=== PATIENT | female | born 1945 | race Caucasian/White ===

== ENCOUNTER 2020-07-16 10:55 | Outpatient (CLI) | payer MEDICARE, SELFPAY ==
--- NOTE | 2020-07-16 11:14 | ECG_ITS ---
Measurements Intervals [place] Rate: 53 P: 40 IN: 154 QRS: -3 QRSD: 88 T: 37 QT: 383 QTc: 360 Interpretive Statements SINUS BRADYCARDIA DELAYED PRECORDIAL R/S TRANSITION BASELINE ARTIFACT- I, III, AVR, AVL, AVF, V1-V6 BORDERLINE ECG Electronically Signed On 07-16-2020 11:48:28 BIOMETRIC FINGERPRINTING TECHNICIAN by Samir Dela Cruz D.O.
== END 2020-07-16 10:56 | disposition home or self-care (01) ==
PROVIDERS: PCP Family Medicine; Visit Provider Nurse Practitioner Family
DX: R00.0 Tachycardia, unspecified (principal); R94.31 Abnormal electrocardiogram [ECG] [EKG]
CPT/HCPCS: 93005

== ENCOUNTER 2020-07-18 22:00 | Emergency (ER) | payer MEDICARE, SELFPAY ==
[2020-07-18] VITALS (11 sets, daily range): BP systolic 141–173; BP diastolic 69–78; PULSE 59–66; RESP 14–21; TEMP 35.8; O2SAT 97–100
--- NOTE | ~2020-07-18 | XR_ITS ---
EXAMINATION: XR chest 1V portable 07/18/2020 22:28 INDICATION: Medial chest pain PROCEDURE: AP portable chest COMPARISON: 04/24/2009 FINDINGS: The lungs are clear. The lungs are hyperinflated which is consistent with, but not diagnost ic of chronic obstructive pulmonary disease. The cardiomediastinal silhouette is within normal limits . There are no pleural effusions. There is no pneumothorax suspected. IMPRESSION: 1: NO ACUTE CARDIOPULMONARY DISEASE. Reviewed, dictated and finalized at location A. [facility]
--- NOTE | 2020-07-18 22:08 | ECG_ITS ---
Measurements Intervals [place] Rate: 61 P: 73 NV: 155 QRS: -12 QRSD: 90 T: 32 QT: 373 QTc: 377 Interpretive Statements SINUS RHYTHM DELAYED PRECORDIAL R/S TRANSITION BASELINE WANDER- I, II, AVR, AVL, AVF BORDERLINE ECG Electronically Signed On 07-19-2020 7:58:52 YARD COUPLER by Samir Dela Cruz D.O.
--- NOTE | 2020-07-18 22:12 | ED.CHESTPAIN ---
HPI - Chest Pain General Chief Complaint: Chest Pain Stated Complaint: Chest tightness Time Seen by Provider: 07/18/20 22:12 Source: patient Mode of arrival: ambulatory Limitations: no limitations History of Present Illness HPI narrative: Patient is a 75-year-old female with a history of hyperlipidemia and hypertension who presents for evaluation of chest pain. Patient states that she was doing a puzzle at home this evening when she suddenly experienced central chest pain that lasted for 3 to 5 minutes before resolving on its own. No associated nausea, vomiting, shortness of breath, neck pain, shoulder pain, jaw pain or arm pain. No concurrent palpitations. She denies any current chest pain. Patient states she feels well. Patiently recently saw her primary care physician has these episodes of chest pain have been occurring over the past week and a half. She denies any history of stress test. She does not smoke. She does have a history of hyperlipidemia and she recently discontinued her statin even though she had been on this over the past 4 months because she was concerned it may be causing her pain. Patient does report a history of anxiety she states she has been very stressed recently and was wondering if that could also be causing some of her symptoms. Related Data Home Medications Medication Instructions Recorded Confirmed Lactobacillus acidophilus 100 mg PO DAILY 07/18/20 [Acidophilus] aspirin 81 mg PO DAILY 07/18/20 bvojiefssuqh-sac-sruo-FA-vit K tablet PO 07/18/20 [Adults Multivitamin] omega-3 fatty acids [Fish Oil] 1,000 mg PO DAILY 07/18/20 Allergies Allergy/AdvReac Type Severity Reaction Status Date / Time zinc Allergy Mild Unknown Verified 07/18/20 22:05 esomeprazole Allergy Unknown Unknown Verified 07/18/20 22:05 fluoxetine Allergy Unknown Unknown Verified 07/18/20 22:05 omeprazole Allergy Unknown Unknown Verified 07/18/20 22:05 pollen extracts Allergy Unknown Unknown Verified 07/18/20 22:05 Review of Systems Review of Systems: Narrative: CONSTITUTIONAL: Denies fever, chills, or sweats. EYES: Denies visual changes, redness, or discharge. ENT: Denies rhinorrhea, congestion, sore throat, or otalgia. CARDIOVASCULAR: Denies current chest pain, palpitations, or edema. RESPIRATORY: Denies cough or dyspnea. GASTROINTESTINAL: Denies abdominal pain, nausea, vomiting, or diarrhea. GENITOURINARY: Denies dysuria or hematuria. SKIN: Denies rash or itching. MUSCULOSKELETAL: Denies back pain, joint pain, or myalgia. NEUROLOGIC: Denies headache, numbness, or weakness. PSYCHIATRIC: Reports anxiety [facility] Past Medical History Medical History (Updated 07/19/20 @ 01:59 by Sonia Coulter MD) Anxiety Essential (primary) hypertension Gastroesophageal reflux disease without esophagitis Hyponatremia Mixed hyperlipidemia Racing heart beat Skin lesion of cheek Skin lesion of face Vitamin D deficiency Vitamin D deficiency, unspecified Family History Family History Mother Family history of diabetes mellitus in first degree relative Grandparent Diabetes mellitus Social History Social History Smoking status: Never smoker Alcohol intake: never Gender identity (if verbalized by the patient): Female Sexual Orientation (if Verbalized by the Patient): Straight or Heterosexual Exam Narrative: Exam Narrative: GENERAL: Awake, alert, conversant HEAD: Normocephalic, atraumatic. EYES: PERRLA and EOMI. ENT: Nares clear, no rhinorrhea or epistaxis. Mucous membranes moist. NECK: Supple. CHEST: No respiratory distress, breathing even and non labored, no chest wall tenderness HEART: Regular rate, sinus rhythm, no murmur ABDOMEN:Non distended, non tender EXTREMITIES: Normal range of motion. No edema. No calf tenderness bilaterally. SKIN: Warm, dry, no rash. NEURO:No focal deficits. Alert and oriented
[2020-07-18] MEDS: ASPIRIN 81 MG CHEWABLE TABLET 324 MG PO (22:34)
[2020-07-18 22:42] LABS: Basophils Absolute Auto 0.1 K/mm3 (0.0-0.1); Basophils Percent Auto 0.7 % (0.2-1.2); Eosinophils Absolute Auto 0.2 K/mm3 (0-0.3); Eosinophils Percent Auto 1.8 % (0-4.4); Hematocrit 38.9 % (37.0-47.0); Hemoglobin 13.3 g/dL (12.0-15.0); Immature Granulocyte Absolute 0.03 K/mm3 (0.00-0.031); Immature Granulocyte Percent A 0.3 % (0-0.5); Lymphocytes Absolute Auto 2.39 K/mm3 (0.9-3.2); Lymphocytes Percent Auto 26.3 % (18.3-44.2); Mean Corpuscular HGB Conc 34.2 g/dl (32-36); Mean Corpuscular Hemoglobin 31.2 pg (26-34); Mean Corpuscular Volume 91.3 fl (80-100); Mean Platelet Volume 9.3 fl (7.4-10.4); Monocytes Absolute Auto 0.9 K/mm3 (0.1-0.6); Monocytes Percent Auto 9.5 % (2.6-8.5); Neutrophils Absolute Auto 5.6 K/mm3 (1.3-6.7); Neutrophils Percent Auto 61.4 % (45.5-73.1); Platelet Count Result 248 k/mm3 (150-375); Red Blood Count 4.26 M/mm3 (4.2-5.4); White Blood Count 9.1 K/mm3 (4.5-10.0)
[2020-07-18 22:52] LABS: INR 0.9; Prothrombin Time 12.8 Seconds (11.1-14.7)
[2020-07-18 22:53] LABS: Partial Thromboplastin Time 27.5 SECONDS (22.3-36.8)
[2020-07-18 22:56] LABS: Anion Gap 11 mmol/L (8-16); Blood Urea Nitrogen 19 mg/dL (7-17); Calcium 9.2 mg/dL (8.4-10.2); Carbon Dioxide 26 mmol/L (22-30); Chloride 94 mmol/L (98-107); Estimated CRCL calculation 35 ml/min; Estimated Glomerular Filt Rate 54; Glucose 130 mg/dL (65-105); Potassium 4.2 mmol/L (3.4-5.0); Sodium 131 mmol/L (137-145)
[2020-07-18 23:08] LABS: Troponin I < 0.012 ng/mL (0.000-0.034)
[2020-07-19 00:09] VITALS: PULSE 57; RESP 15; O2SAT 98
[2020-07-19 00:19] VITALS: PULSE 60; RESP 47; O2SAT 99
[2020-07-19 00:30] VITALS: BP 162/72; PULSE 62; RESP 12; O2SAT 97
[2020-07-19 00:31] VITALS: PULSE 60; RESP 17; O2SAT 98
[2020-07-19 01:30] VITALS: BP 148/64; PULSE 59; RESP 13; O2SAT 99
[2020-07-19 01:39] LABS: Troponin I < 0.012 ng/mL (0.000-0.034)
[2020-07-19 02:00] VITALS: BP 143/63; PULSE 62; RESP 10; O2SAT 98
== END 2020-07-19 02:20 | disposition home or self-care (01) ==
PROVIDERS: Emergency Provider Emergency Medicine; PCP Family Medicine
DX: R07.89 Other chest pain (principal); E78.5 Hyperlipidemia, unspecified; I10 Essential (primary) hypertension; K21.9 Gastro-esophageal reflux disease without esophagitis; E55.9 Vitamin D deficiency, unspecified; Z79.82 Long term (current) use of aspirin; R94.31 Abnormal electrocardiogram [ECG] [EKG]
CPT/HCPCS: 36415; 71045; 80048; 84484; 85025; 85610; 85730; 93005; 99284; A9270

== ENCOUNTER 2023-05-30 10:04 | Emergency (ER) | payer MEDICARE, SELFPAY ==
--- NOTE | 2023-05-30 10:06 | ED.URI ---
HPI - URI/Sore Throat General Chief Complaint: Upper Respiratory Infection Stated Complaint: sore throat,irritation left cheek Time Seen by Provider: 05/30/23 10:05 Source: patient Mode of arrival: ambulatory Limitations: no limitations History of Present Illness HPI Narrative: Ariella is a 77-year-old female patient presenting to the clinic today with complaints of sore throat and redness and swelling around the left eye. She reports she just got back from [place] 2 weeks ago. At the time she was in [place] she developed redness and swelling around the left eye with pain and tenderness. She was seen in the urgent care there and prescribed Keflex and bacitracin cream. She reports that she finished the medication however the redness and swelling is coming back and is gradually getting worse day by day. Also reporting left-sided sore throat today that started over the last day or 2. No known fever or chills. Denies any visual changes MD elicited complaint: sore throat and other (Redness and swelling around the left eye) Related Data Home Medications Medication Instructions Recorded Confirmed Lactobacillus acidophilus 100 mg PO DAILY 07/18/20 09/20/21 (Acidophilus capsule) aspirin 81 mg tablet 81 mg PO DAILY 07/18/20 09/20/21 multivit with minerals-iron 18 tablet PO 07/18/20 09/20/21 mg-folic ac 400 mcg-vit K 25 mcg tablet (Adults Multivitamin) omega-3 fatty acids 1,000 mg PO DAILY 07/18/20 09/20/21 atorvastatin 20 mg tablet 20 mg PO .every other day 09/20/21 09/20/21 metoprolol tartrate 50 mg tablet 25 mg PO Q12H 09/20/21 09/20/21 Allergies Allergy/AdvReac Type Severity Reaction Status Date / Time zinc Allergy Mild Unknown Verified 05/30/23 10:10 esomeprazole Allergy Unknown Unknown Verified 05/30/23 10:10 fluoxetine Allergy Unknown Unknown Verified 05/30/23 10:10 omeprazole Allergy Unknown Unknown Verified 05/30/23 10:10 pollen extracts Allergy Unknown Unknown Verified 05/30/23 10:10 Review of Systems Review of Systems: Pertinent positives per HPI. Patient denies any fever, chills, rash, headache, visual changes, dizziness, cough, shortness of breath, chest pain, palpitations, nausea, vomiting, diarrhea, constipation, abdominal pain, or any urinary issues. [facility] Past Medical History Medical History Anxiety Essential (primary) hypertension Gastroesophageal reflux disease without esophagitis Hyponatremia Mixed hyperlipidemia Racing heart beat Skin lesion of cheek Skin lesion of face Vitamin D deficiency Vitamin D deficiency, unspecified Family History Family History Mother Family history of diabetes mellitus in first degree relative Grandparent Diabetes mellitus Social History Social History Smoking status: Never smoker Alcohol intake: never Gender identity (if verbalized by the patient): Female Sexual Orientation (if Verbalized by the Patient): Straight or Heterosexual Comments At the time of my signature, I reviewed and agree with the nursing past medical, surgical, social, and family history. There is no relevant family history pertinent to the patient complaint. Exam Narrative: General: Well-developed, well nourished, in no apparent distress Head: Normocephalic, atraumatic Eyes: Pupils equally round and reactive to light bilaterally, EOM intact, sclera and conjunctive clear, no discharge, redness and swelling around the left eye/cheek-tender to palpation with mild erythema without fluctuance or induration Ears: TMs intact and clear, ear canals clear, no drainage, grossly hearing normal. Nose: Nares patent, no discharge, no inflammation, no sinus tenderness. Mouth: Oral pharynx red without lesions or masses, good dentition, MMM. Postnasal drip Neck: Supple, trachea midline, no enlargement of anterior or
[2023-05-30 10:20] VITALS: BP 149/65; PULSE 79; RESP 16; TEMP 37.3; O2SAT 98
== END 2023-05-30 10:35 | disposition home or self-care (01) ==
PROVIDERS: Emergency Provider Nurse Practitioner Family; PCP Family Medicine
DX: J02.9 Acute pharyngitis, unspecified (principal); L03.213 Periorbital cellulitis; I10 Essential (primary) hypertension; E78.2 Mixed hyperlipidemia
CPT/HCPCS: 99213; G0463

== ENCOUNTER 2023-07-07 07:25 | Outpatient (CLI) | payer MEDICARE, SELFPAY ==
--- NOTE | ~2023-07-07 | CT_ITS ---
EXAMINATION: CT facial bones w con DATE: 07/07/2023 08:03 INDICATION: Cellulitis of face. TECHNIQUE: Computed tomography (CT) of the facial bones and maxillofacial region was performed with 7 5 mL Omnipaque 350 intravenous contrast. Automated exposure control and iterative reconstruction tech [employer] were employed. The dose-length product was 262.38 mGy-cm. COMPARISON: None. FINDINGS: There is mild leftward deviation of the nasal septum. There is mild mucosal thickening in t he ethmoid sinuses. There is a jewish of tooth 14. There are periapical lucencies around tooth 1 4 with sclerotic margin with communication with the maxillary sinus. There is severe cervical spondyl osis. IMPRESSION: 1. No abscess. Reviewed, dictated and finalized at location A. [employer] IMPRESSION: 1. No abscess.
[2023-07-07 07:57] LABS: Estimated Glomerular Filt Rate > 60
== END 2023-07-07 07:26 | disposition home or self-care (01) ==
PROVIDERS: PCP Family Medicine; Visit Provider Physician Assistant Medical
DX: L03.211 Cellulitis of face (principal)
CPT/HCPCS: 70487; Q9967